=== PATIENT | female | born 1935 | race Caucasian/White ===

== ENCOUNTER 2020-08-08 20:34 | Emergency (ER) | payer OTHER, MEDICAID ==
[~2020-08-08] VITALS: Ht 154.9 cm; Wt 56.2 kg
[2020-08-08 20:57] LABS: BASOPHILS % (AUTO) 0.4 % (0.0-2.0); HEMATOCRIT 35 % (33-45); HEMOGLOBIN 11.6 g/dL (11.5-14.8); LYMPHOCYTES # (AUTO) 0.9 /CMM (0.8-4.8); LYMPHOCYTES % (AUTO) 17.4 % (20.0-44.0); MEAN CORPUSCULAR HGB CONC 34 g/dl (31.0-36.0); MEAN CORPUSCULAR VOLUME 73 fL (82-100); MONOCYTES # (AUTO) 0.5 /CMM (0.1-1.30); MONOCYTES % (AUTO) 10.4 % (2.0-12.0); NEUTROPHILS # (AUTO) 3.7 /CMM (1.8-8.9); NEUTROPHILS % (AUTO) 71.8 % (43.0-81.0); PLATELET COUNT (AUTO) 284 /CMM (150-450); RED BLOOD CELL COUNT(AUTO) 4.75 MIL/uL (4.0-5.2); WHITE BLOOD COUNT (AUTO) 5.1 K/uL (4.3-11.0)
[2020-08-08] MEDS ORDERED: IV NS 0.9% 1,000 ML BAG IV ONE (21:00)
[2020-08-08 21:12] LABS: CALCIUM, SERUM 9.4 mg/dL (8.5-10.1); CARBON DIOXIDE 23 mmol/L (21-32); CHLORIDE 92 mmol/L (98-107); CREATININE 1.8 mg/dL (0.6-1.3); GLUCOSE 167 mg/dL (74-106); POTASSIUM 4.3 mmol/L (3.5-5.1); SODIUM SERUM 126 mmol/L (136-145); UREA NITROGEN, BLOOD 19 mg/dL (7-18)
[2020-08-08 21:15] LABS: BILIRUBIN,URINE NEGATIVE (NEGATIVE); COLOR,URINE DARK YELLOW (YELLOW); LEUKOCYTE ESTERASE ,URINE MODERATE (NEGATIVE); NITRITE, URINE NEGATIVE (NEGATIVE); PH,URINE 5.5 (5.0-8.0); PROTEIN,URINE 100 mg/dl (NEGATIVE); UGLUCOSE >=1000 mg/dL (NEGATIVE)
[2020-08-08 21:18] LABS: ALANINE AMINOTRANSFERASE 16 U/L (12-78); ALBUMIN 4.4 g/dL (3.4-5.0); ALKALINE PHOSPHATASE 135 U/L (46-116); ASPARTATE AMINOTRANSFERASE 14 U/L (15-37); BILIRUBIN,DIRECT 0.3 mg/dL (0.0-0.2); BILIRUBIN,TOTAL 0.8 mg/dL (0.2-1.0); TOTAL PROTEIN, SERUM 8.2 g/dL (6.4-8.2)
--- NOTE | 2020-08-08 21:19 | NUR ---
PT [facility]AR[facility]
[2020-08-08 21:22] LABS: BACTERIA,URINE Many /HPF (None Seen); RBC,URINE 21-50 /HPF (0-2); SQUAMOUS EPITHELIAL CELL,UR Few /HPF (None Seen); WBC,URINE 51-80 /HPF (0-3)
[2020-08-08 21:31] LABS: LYMPHOCYTES % (MANUAL) 18 % (16-48); MONOCYTES % (MANUAL) 8 % (0-11.0); NEUTROPHILS % (MANUAL) 74 (42-76)
--- NOTE | 2020-08-08 21:42 | NUR ---
CHARLI KRUEGER - CANDI [phone]
--- NOTE | 2020-08-08 21:56 | NUR ---
RAMESH KRUEGER, LIVES WITH THE PT: [phone]
[2020-08-08] MEDS ORDERED: LEVOFLOXACIN 750 MG /D5W 150ML 150 ML IV ONE ×2 (22:00→22:09)
--- NOTE | 2020-08-08 23:06 | NUR ---
CALL FROM LAB. RAPID COVID NEGATIVE.
--- NOTE | 2020-08-09 00:21 | NUR ---
PATIENT RETURNED FROM CT
--- NOTE | 2020-08-09 02:17 | NUR ---
PT ACCEPTED TO [facility]. BED 8A. # FOR REPORT [phone]
--- NOTE | 2020-08-09 02:19 | NUR ---
TRANSPORT AUTH: [id number]
--- NOTE | 2020-08-09 02:21 | NUR ---
[facility] WILL ARRIVE IN ABOUT 15 TO 20 MINUTES TO TAKE PT BACK TO FACILITY.
--- NOTE | 2020-08-09 02:48 | NUR ---
REPORT GIVEN TO VINCENT AGRAWAL AT [facility]
--- NOTE | 2020-08-09 03:08 | NUR ---
[facility] ambulance at bed side to pick and shovel man the pt
[2020-08-09 03:14] VITALS: BP 148/65
== END 2020-08-09 03:20 ==
LOC: EDBD 20:34 → ER 20:34
DX: N39.0 Urinary tract infection, site not specified (principal); R53.1 Weakness; R94.31 Abnormal electrocardiogram [ECG] [EKG]; E11.9 Type 2 diabetes mellitus without complications; Z88.0 Allergy status to penicillin; R62.7 Adult failure to thrive; Z68.23 Body mass index [BMI] 23.0-23.9, adult; Z20.822 Contact with and (suspected) exposure to COVID-19
CPT/HCPCS: 36415; 70450; 71045; 80048; 80076; 81001; 83605; 84145; 84484; 85007; 85025; 85730; 87040 ×2; 87077; 87081; 87086; 87186 ×2; 87426; 93005; 96361; 96365; 99285; C9803; J1956; J7030

== ENCOUNTER 2020-09-28 03:22 | Inpatient (IN) | payer OTHER ==
[~2020-09-28] VITALS: Ht 154.9 cm; Wt 56.2 kg
[2020-09-28] VITALS (21 sets, daily range): BP systolic 88–135; BP diastolic 33–103
--- NOTE | 2020-09-28 03:25 | NUR ---
PT LISS FROM [facility] C/O HAVING ABNORMAL LABS AND POSSIBLE UTI K: 6.3, BUN: 65, CREATININE: 2.6 DRAWN ON 09/27/20. PLACED IN BED 9 ON WILL CALL CLERK AND PULSE OX. LINE ESTABLISHED RF 20G. BLOOD WORK COLLECTED, SENT TO LAB.
[2020-09-28 03:54] LABS: MONOCYTES # (AUTO) 0.8 K/uL (0.1-1.30); NEUTROPHILS # (AUTO) 8.7 K/uL (1.8-8.9); WHITE BLOOD COUNT (AUTO) 10.3 K/uL (4.3-11.0)
--- NOTE | 2020-09-28 03:57 | NUR ---
FRANSICOID SWABBED, SENT TO LAB.
[2020-09-28 03:58] LABS: BASOPHILS # (AUTO) 0.1 K/uL (0.0-0.2); BASOPHILS % (AUTO) 0.8 % (0.0-2.0); HEMATOCRIT 29 % (33-45); HEMOGLOBIN 9.2 g/dL (11.5-14.8); LYMPHOCYTES # (AUTO) 0.7 K/uL (0.8-4.8); LYMPHOCYTES % (AUTO) 6.9 % (20.0-44.0); MEAN CORPUSCULAR HGB CONC 32 g/dl (31.0-36.0); MEAN CORPUSCULAR VOLUME 75 fL (82-100); MONOCYTES % (AUTO) 7.9 % (2.0-12.0); NEUTROPHILS % (AUTO) 84.4 % (43.0-81.0); PLATELET COUNT (AUTO) 479 K/uL (150-450); RED BLOOD CELL COUNT(AUTO) 3.83 MIL/uL (4.0-5.2)
[2020-09-28] MEDS ORDERED: IV NS 0.9% 1,000 ML BAG IV ONE ×2 (04:00→04:30)
[2020-09-28 04:16] LABS: ALANINE AMINOTRANSFERASE 22 U/L (12-78); ALBUMIN 2.5 g/dL (3.4-5.0); ALKALINE PHOSPHATASE 144 U/L (46-116); ASPARTATE AMINOTRANSFERASE 16 U/L (15-37); BILIRUBIN,DIRECT 0.2 mg/dL (0.0-0.2); BILIRUBIN,TOTAL 0.4 mg/dL (0.2-1.0); CALCIUM, SERUM 9.9 mg/dL (8.5-10.1); CARBON DIOXIDE 14 mmol/L (21-32); CHLORIDE 104 mmol/L (98-107); CREATININE 3.4 mg/dL (0.6-1.3); SODIUM SERUM 136 mmol/L (136-145); TOTAL PROTEIN, SERUM 7.7 g/dL (6.4-8.2)
[2020-09-28 04:20] LABS: GLUCOSE 605 mg/dL (74-106); UREA NITROGEN, BLOOD 82 mg/dL (7-18)
--- NOTE | 2020-09-28 04:20 | NUR ---
K 6.3 GLUCOSE 605 BUN 82
[2020-09-28 04:21] LABS: POTASSIUM 6.3 mmol/L (3.5-5.1)
[2020-09-28] MEDS ORDERED: INSULIN REGULAR, HUMAN 100 UNIT/ML 10 ML VIAL ONE (04:26)
[2020-09-28] MEDS ORDERED: SODIUM BICARBONATE SYR 50 MEQ/50 ML DISP.SYRIN ONE (04:26)
[2020-09-28] MEDS ORDERED: FUROSEMIDE 20 MG/2 ML VIAL ONE (04:26)
[2020-09-28] MEDS ORDERED: CALCIUM CHLORIDE 1,000 MG/10 ML DISP.SYRIN ONE (04:26)
[2020-09-28] MEDS ORDERED: SODIUM BICARBONATE SYR 50 MEQ/50 ML DISP.SYRIN IV ONE (04:30)
[2020-09-28] MEDS ORDERED: ALBUTEROL FS 2.5 MG/3 ML VIAL.NEB NEB ONE (04:30)
[2020-09-28] MEDS ORDERED: CALCIUM CHLORIDE 1,000 MG/10 ML DISP.SYRIN IV ONE (04:30)
[2020-09-28] MEDS ORDERED: ALBUTEROL FS 2.5 MG/3 ML VIAL.NEB ONE (04:30)
[2020-09-28] MEDS ORDERED: FUROSEMIDE 40 MG/4 ML VIAL IV ONE (04:30)
[2020-09-28] MEDS ORDERED: INSULIN REGULAR, HUMAN 100 UNIT/ML 10 ML VIAL IV ONE (04:30)
[2020-09-28 04:32] LABS: COLOR,URINE YELLOW (YELLOW)
[2020-09-28 04:33] LABS: UGLUCOSE >=2000 MG/DL mg/dL (NEGATIVE)
[2020-09-28 04:34] LABS: BILIRUBIN,URINE MODERATE (NEGATIVE)
[2020-09-28 04:35] LABS: BAND % (MANUAL) 23 % (0.0-5.0); BASOPHILS % (MANUAL) 0 % (0.0-2.0); EOSINOPHILS % (MANUAL) 0 % (0-4); LYMPHOCYTES % (MANUAL) 8 % (16-48); METAMYELOCYTES % 1 % (0-0); MONOCYTES % (MANUAL) 8 % (0-11.0); NEUTROPHILS % (MANUAL) 60 (42-76)
[2020-09-28 04:35] LABS: NITRITE, URINE NEGATIVE (NEGATIVE); PROTEIN,URINE 30 mg/dl (NEGATIVE); UROBILINOGEN,URINE 0.2 EU/dL (0.2)
[2020-09-28 04:36] LABS: LEUKOCYTE ESTERASE ,URINE MODERATE (NEGATIVE)
[2020-09-28] MEDS ORDERED: INSULIN REGULAR, HUMAN 100 UNIT in IV NS 0.9% 99 ML IV PRN (05:00)
[2020-09-28] MEDS ORDERED: CIPROFLOXACIN IV RTU 400 MG in PREMIX 1 EA IV SCH (05:00)
[2020-09-28] MEDS ORDERED: CIPROFLOXACIN IV RTU 200 ML IV ONE (05:18)
[2020-09-28 05:29] LABS: BACTERIA,URINE Many /HPF (None Seen); SQUAMOUS EPITHELIAL CELL,UR Few /HPF (None Seen)
--- NOTE | 2020-09-28 05:29 | NUR ---
KRISTY FROM [facility] [phone] FAX [phone]
[2020-09-28 05:30] LABS: MUCUS,URINE Few /LPF (None Seen); WBC,URINE 21-50 /HPF (0-3)
--- NOTE | 2020-09-28 05:35 | NUR ---
FSBS:448 PER MD PT WAS STARTED ON INSULIN DRIP AT 5 UNIT/ HR. WILL CONT TO MONITOR
--- NOTE | 2020-09-28 06:03 | NUR ---
SPOKE WITH KRISTY FROM [facility] AND REC'D VERBAL AUTHORIZATION FOR PT TO BE ADMITTED TO [facility]
--- NOTE | 2020-09-28 06:10 | NUR ---
ER MD SPOKE TO DR. CORTEZ REGARDING PT ADMISSION WITH ADMISSION ORDERS RECEIVED.
[2020-09-28] MEDS ORDERED: hydrALAZINE HCL 25 MG TABLET PO PRN (06:30)
[2020-09-28] MEDS ORDERED: TRAMADOL HCL 50 MG TABLET PO PRN (06:30)
--- NOTE | 2020-09-28 06:36 | NUR ---
REPEAT BLOOD SUGAR:440 PT REMAINED ON INSULIN DRIP AT 5 UNIT/ HR. WILL CONT TO MONITOR ,
--- NOTE | 2020-09-28 07:12 | NUR ---
PT WAS TRANSFERRED TO ICU UNDER ACLS. REPORT GIVEN TO CANDICE FOR DAVY.
--- NOTE | 2020-09-28 07:30 | NUR ---
RN OPENING NOTES Patient's report received from charge nurse .Patient is on 2 lpm . HOB kept elevated. Insulin drip running at 5 units /hour. Patient will be assessed and findings will be placed in the chart. F/c noted with white and cloudiness. IV fluids hung at 125 cc/hour. Per charge nurse orders faxed to pharmacy. Awaiting verification. hob kept elevated. Call light with in reach.
[2020-09-28] MEDS: CALCIUM CARBONATE 500 MG TAB.CHEW PO SCH ×4 (08:00→17:44)
[2020-09-28 08:16] LABS: ABG BASE EXCESS -10.9 mmol/L; ABG OXYGEN SATURATION 98.4 % (92.0-98.5); ABG PCO2 20.9 mmHg (35.0-45.0); ABG PH 7.391 (7.350-7.450); COHb 0.3 % (0.5-1.5); MetHb 0.3 % (0.0-1.5); O2Hb 97.8 % (94.0-97.0); SITE, ABG Left Radial; VENT MODE, BG nasal cannula
[2020-09-28] MEDS ORDERED: SODIUM POLYSTYRENE SULFONATE 15 G/60 ML BOTTLE PO ONE (08:30)
[2020-09-28] MEDS ORDERED: ACETAMINOPHEN 325 MG TABLET PO PRN (08:30)
[2020-09-28] MEDS ORDERED: INS (REG) DRIP 100 U/100 ML NS IV PRN (08:30)
[2020-09-28] MEDS ORDERED: LATA2.5D15 EACHEYE (08:33)
[2020-09-28] MEDS ORDERED: LISI10TA29 PO (08:33)
[2020-09-28] MEDS ORDERED: TRAM50TA2 PO (08:33)
[2020-09-28] MEDS ORDERED: AMIN887L PO (08:33)
[2020-09-28] MEDS ORDERED: FOLI0.8T3 PO (08:33)
[2020-09-28] MEDS ORDERED: VITA1TAB20 PO (08:33)
[2020-09-28] MEDS ORDERED: CYAN100T44 PO (08:33)
[2020-09-28] MEDS ORDERED: HYDR-4076 PO (08:33)
[2020-09-28] MEDS ORDERED: LIDOCAINE PATCH TP (08:33)
[2020-09-28] MEDS ORDERED: PRAV10TA40 PO (08:33)
[2020-09-28] MEDS ORDERED: CHOL200076 PO (08:33)
[2020-09-28] MEDS ORDERED: CRAN3875 PO (08:33)
[2020-09-28] MEDS ORDERED: CALC-494 PO (08:33)
[2020-09-28] MEDS ORDERED: THIA100T88 PO (08:33)
[2020-09-28] MEDS ORDERED: MIRT-121 PO (08:33)
[2020-09-28] MEDS: FOLIC ACID 1 MG TABLET PO SCH ×2 (09:00→10:04)
[2020-09-28] MEDS ORDERED: INSULIN GLARGINE, 100 UNIT/ML CARTRIDGE SQ SCH (09:00)
[2020-09-28] MEDS: PROSOURCE / PROSTAT (PYXIS) 30 ML UDC PO SCH (09:00)
[2020-09-28] MEDS: THIAMINE HCL 100 MG TABLET PO SCH ×2 (09:00→10:04)
[2020-09-28] MEDS: CYANOCOBALAMIN 100 MCG TABLET PO SCH ×2 (09:00→10:04)
[2020-09-28] MEDS: CHOLECALCIFEROL (VITAMIN D 3) 400 UNIT TABLET PO SCH ×2 (09:00→10:04)
[2020-09-28] MEDS: IV 1/2NS 1000 ML 1,000 ML IV PRN ×2 (09:20→16:26)
[2020-09-28] MEDS: AMLODIPINE BESYLATE 2.5 MG TABLET PO SCH ×2 (09:30→10:09)
[2020-09-28] MEDS ORDERED: MEROPENEM 1 G in IV NS 0.9% 100 ML IV ONE (10:00)
[2020-09-28] MEDS ORDERED: CEFTRIAXONE 1 G in IV D5W 50 ML IV SCH (10:00)
--- NOTE | 2020-09-28 10:00 | NUR ---
PATIENT NOTED WITH SLIGHT COUGH WHILE SWALLOWING WATER. SWALLOW EVAL CONSULTED TO BE EVALUATED BY
[2020-09-28] MEDS: LIDOCAINE 5% (PATCH) 1 EA PATCH TP SCH (10:04)
[2020-09-28 10:19] LABS: CALCIUM, SERUM 10.1 mg/dL (8.5-10.1); CARBON DIOXIDE 14 mmol/L (21-32); CHLORIDE 110 mmol/L (98-107); CREATININE 3.1 mg/dL (0.6-1.3); POTASSIUM 5.4 mmol/L (3.5-5.1); SODIUM SERUM 141 mmol/L (136-145); UREA NITROGEN, BLOOD 78 mg/dL (7-18)
[2020-09-28 10:21] LABS: IRON, SERUM 22 ug/dl (50-175); TOTAL IRON BINDING CAPACITY 154 ug/dl (250-450)
[2020-09-28 10:33] LABS: GLUCOSE 351 mg/dL (74-106)
--- NOTE | 2020-09-28 10:41 | NUR ---
Patient seen by Dr Jesus and database report writer was giving patient her kayexalate.Per Dr to stop the kayexalate. Patient received 30 grams from 2 bottles and 7.5 grams from one bottle total of 37.5 grams of kayexalate. Patients current potassium is 5.4. Md aware.
[2020-09-28] MEDS ORDERED: MEROPENEM 1 G in IV NS 0.9% 100 ML IV SCH (13:00)
[2020-09-28] MEDS ORDERED: PIPERACILLIN /TAZOBACTAM 2.25 G in IV D5W 50 ML IV SCH (13:00)
--- NOTE | 2020-09-28 16:00 | NUR ---
PHOTOS OF PATIENT'S SKIN ASSESSMENT PLACED IN CHART AND WOUND CARE CONSULTED.
[2020-09-28] MEDS: BLOOD SUGAR DIAGNOSTIC 1 EACH STRIP IN SCH ×8 (16:22→23:10)
--- NOTE | 2020-09-28 19:20 | NUR ---
RN CLOSING NOTES Patient is alert and responsive to verbal and physical stimuli. Patient is on 2 lpm via n/c with 02 at of 100%.. HOB kept elevated. Insulin drip running at 0.5 units/hour. Patient had one bm during shift. IV n/s running at 125ml/hour to right forearm 20 gauze and insulin drip running to left forearm 20 gauze. Endorsed to next shift for DAVY. Call light with in reach. Bed is in lowest and locked position.
[2020-09-28 20:09] LABS: CALCIUM, SERUM 9.3 mg/dL (8.5-10.1); CARBON DIOXIDE 18 mmol/L (21-32); CHLORIDE 112 mmol/L (98-107); CREATININE 2.9 mg/dL (0.6-1.3); GLUCOSE 170 mg/dL (74-106); POTASSIUM 4.9 mmol/L (3.5-5.1); SODIUM SERUM 146 mmol/L (136-145); UREA NITROGEN, BLOOD 73 mg/dL (7-18)
[2020-09-28] MEDS: LATANOPROST EYE DROP 0.005% 2.5 ML BOTTLE EACHEYE SCH (21:36)
[2020-09-28] MEDS: MEROPENEM 500 MG in IV NS 0.9% 100 ML IV SCH (21:36)
[2020-09-28] MEDS: MIRTAZAPINE 15 MG TABLET PO SCH (21:41)
[2020-09-28 23:40] LABS: CALCIUM, SERUM 8.8 mg/dL (8.5-10.1); CARBON DIOXIDE 20 mmol/L (21-32); CHLORIDE 112 mmol/L (98-107); CREATININE 2.7 mg/dL (0.6-1.3); GLUCOSE 137 mg/dL (74-106); POTASSIUM 4.2 mmol/L (3.5-5.1); SODIUM SERUM 145 mmol/L (136-145); UREA NITROGEN, BLOOD 74 mg/dL (7-18)
[2020-09-29] VITALS (22 sets, daily range): BP systolic 11–146; BP diastolic 36–89
[2020-09-29] MEDS: BLOOD SUGAR DIAGNOSTIC 1 EACH STRIP IN SCH ×12 (00:02→11:15)
[2020-09-29] MEDS: IV 1/2NS 1000 ML 1,000 ML IV PRN ×3 (03:24→22:39)
[2020-09-29 04:43] LABS: CALCIUM, SERUM 8.6 mg/dL (8.5-10.1); CARBON DIOXIDE 19 mmol/L (21-32); CHLORIDE 112 mmol/L (98-107); CREATININE 2.5 mg/dL (0.6-1.3); GLUCOSE 181 mg/dL (74-106); SODIUM SERUM 144 mmol/L (136-145); UREA NITROGEN, BLOOD 68 mg/dL (7-18)
[2020-09-29 04:44] LABS: BASOPHILS % (AUTO) 0.3 % (0.0-2.0); HEMATOCRIT 25 % (33-45); HEMOGLOBIN 8.2 g/dL (11.5-14.8); LYMPHOCYTES # (AUTO) 0.7 K/uL (0.8-4.8); LYMPHOCYTES % (AUTO) 12.1 % (20.0-44.0); MEAN CORPUSCULAR HGB CONC 34 g/dl (31.0-36.0); MEAN CORPUSCULAR VOLUME 73 fL (82-100); MONOCYTES # (AUTO) 0.4 K/uL (0.1-1.30); MONOCYTES % (AUTO) 7.2 % (2.0-12.0); NEUTROPHILS # (AUTO) 4.6 K/uL (1.8-8.9); NEUTROPHILS % (AUTO) 80.4 % (43.0-81.0); PLATELET COUNT (AUTO) 307 K/uL (150-450); RED BLOOD CELL COUNT(AUTO) 3.34 MIL/uL (4.0-5.2); WHITE BLOOD COUNT (AUTO) 5.7 K/uL (4.3-11.0)
--- NOTE | 2020-09-29 07:47 | NUR ---
ASSISTANT UNIT FORESTER OPENING NOTES Patient is received in bed in a stable condition. Patient able to open eyes to verbal stimuli. On 2lpm via n/c with 02 sat of 100%. Rogers cath in place with white cloudy urine in the catheter tubing. HOB kept elevated.Insulin drip running at 1 unit/hour.iv fluids running at 125 ml/hour. Will continue to monitor. Call light with in reach. Call light with in reach.
[2020-09-29] MEDS: AMLODIPINE BESYLATE 2.5 MG TABLET PO SCH (08:29)
[2020-09-29] MEDS: THIAMINE HCL 100 MG TABLET PO SCH (08:33)
[2020-09-29] MEDS: CALCIUM CARBONATE 500 MG TAB.CHEW PO SCH ×3 (08:33→17:40)
[2020-09-29] MEDS: FOLIC ACID 1 MG TABLET PO SCH (08:33)
[2020-09-29] MEDS: CYANOCOBALAMIN 100 MCG TABLET PO SCH (08:33)
[2020-09-29] MEDS: MEROPENEM 500 MG in IV NS 0.9% 100 ML IV SCH ×2 (08:33→21:02)
[2020-09-29] MEDS: CHOLECALCIFEROL (VITAMIN D 3) 400 UNIT TABLET PO SCH (08:33)
[2020-09-29] MEDS: LIDOCAINE 5% (PATCH) 1 EA PATCH TP SCH (08:34)
--- NOTE | 2020-09-29 08:46 | NUR ---
WOUND CARE CONSULT: PT PRESENTS WITH SACRAL DEEP TISSUE INJURY IN EVOLUTION, PRESENT ON ADMISSION. RECOMMENDATIONS MADE FOR WOUND CARE AND SKIN PROTECTION. DISCUSSED WITH NURSING STAFF. IN AGREEMENT WITH PLAN OF CARE. Addendum: 09/29/20 at 0847 by ENZO BOWLES WNDNU Amended: Links added. Addendum: 09/29/20 at 0947 by ENZO BOWLES WNDNU PT TO BE PLACED ON [place] ISOFLEX LOW AIRLOSS BED. TOENAILS NOTED TO BE LONG. DPM CONSULT MADE TO DR ERNANDEZ. DISCUSSED WITH NURSING STAFF.
[2020-09-29] MEDS: PROSOURCE / PROSTAT (PYXIS) 30 ML UDC PO SCH (09:00)
[2020-09-29] MEDS ORDERED: Z GUARD REMEDY 2 OZ OINT TP PRN (09:00)
[2020-09-29] MEDS: Z GUARD REMEDY 2 OZ OINT TP SCH (09:02)
[2020-09-29 11:02] LABS: CALCIUM, SERUM 8.5 mg/dL (8.5-10.1); CARBON DIOXIDE 17 mmol/L (21-32); CHLORIDE 110 mmol/L (98-107); CREATININE 2.4 mg/dL (0.6-1.3); GLUCOSE 247 mg/dL (74-106); SODIUM SERUM 143 mmol/L (136-145); UREA NITROGEN, BLOOD 65 mg/dL (7-18)
--- NOTE | 2020-09-29 11:31 | NUR ---
Patient seen by MD CORTEZ and received orders to start lantus 20 units now then stop insulin drip in 2 hours and order for moderate sliding scale.Orders noted and carried out.
--- NOTE | 2020-09-29 11:33 | NUR ---
Called Dr Fabrice Hilario for urology consult ordered by Dr Henning. Per Dr Hilario to order CT scan of abdomen and pelvis without contrast. Orders noted and carried out.
[2020-09-29] MEDS ORDERED: INSULIN GLARGINE, 100 UNIT/ML CARTRIDGE SQ ONE ×2 (12:00→17:30)
[2020-09-29] MEDS ORDERED: DEXTROSE 50%-WATER 50 ML DISP.SYRIN IV PRN (12:00)
[2020-09-29] MEDS ORDERED: *INSULIN REGULAR(HUMULIN R)HUM 100 UNIT/ML VIAL SQ PRN (17:30)
[2020-09-29] MEDS: INSULIN REGULAR, HUMAN 100 UNIT/ML 3 ML VIAL SQ PRN (17:36)
[2020-09-29] MEDS: BLOOD SUGAR DIAGNOSTIC 1 EACH STRIP VI SCH ×2 (17:36→21:43)
--- NOTE | 2020-09-29 19:00 | NUR ---
received from ICU report at the bedside patients is alert and orienated x2 smiling and answereing simple questions sign posted to alert all that she is on a nector thick liquid and asp precautions no sob skinwarm and dry no s/s of hyper/hypo sugars
--- NOTE | 2020-09-29 19:15 | NUR ---
rceived from ICU awake alert smiling answering simple questions good eye contact rushing to OSD urine in tubing clear yellow IV placd on a pump hung sign to alert all puree / nector thickened liquid asp precautions call light by the patients hand be in low position
--- NOTE | 2020-09-29 19:27 | NUR ---
Patient was transferred to Med Surg and in stable condition. Report given to DEONNA Michaud
[2020-09-29] MEDS: MUPIROCIN OINT 2% 22 GM TUBE NS SCH (20:59)
[2020-09-29] MEDS: LATANOPROST EYE DROP 0.005% 2.5 ML BOTTLE EACHEYE SCH (21:36)
[2020-09-29] MEDS: MIRTAZAPINE 15 MG TABLET PO SCH (21:55)
[2020-09-30 06:49] LABS: BASOPHILS % (AUTO) 0.3 % (0.0-2.0); HEMATOCRIT 22 % (33-45); HEMOGLOBIN 7.5 g/dL (11.5-14.8); LYMPHOCYTES % (AUTO) 18.7 % (20.0-44.0); MEAN CORPUSCULAR HGB CONC 34 g/dl (31.0-36.0); MEAN CORPUSCULAR VOLUME 72 fL (82-100); MONOCYTES # (AUTO) 0.4 K/uL (0.1-1.30); MONOCYTES % (AUTO) 7.1 % (2.0-12.0); NEUTROPHILS # (AUTO) 3.8 K/uL (1.8-8.9); NEUTROPHILS % (AUTO) 73.9 % (43.0-81.0); PLATELET COUNT (AUTO) 257 K/uL (150-450); RED BLOOD CELL COUNT(AUTO) 3.07 MIL/uL (4.0-5.2); WHITE BLOOD COUNT (AUTO) 5.1 K/uL (4.3-11.0)
[2020-09-30] MEDS: BLOOD SUGAR DIAGNOSTIC 1 EACH STRIP VI SCH ×4 (07:02→22:39)
[2020-09-30 07:10] LABS: CALCIUM, SERUM 7.7 mg/dL (8.5-10.1); CARBON DIOXIDE 18 mmol/L (21-32); CHLORIDE 110 mmol/L (98-107); CREATININE 1.9 mg/dL (0.6-1.3); GLUCOSE 96 mg/dL (74-106); POTASSIUM 3.9 mmol/L (3.5-5.1); SODIUM SERUM 141 mmol/L (136-145); UREA NITROGEN, BLOOD 50 mg/dL (7-18)
[2020-09-30] MEDS: IV 1/2NS 1000 ML 1,000 ML IV PRN ×2 (07:10→17:37)
--- NOTE | 2020-09-30 07:32 | NUR ---
MS RN OPENING NOTES: RECEIVED PATIENT AWAKE IN BED IN NO ACUTE SIGNS OF DISTRESS. HOB ELEVATED. A/O X2. VERBALLY RESPONSIVE, CONFUSED, NO S/S OF PAIN OBSERVED AT THIS TIME. ON 02 VIA N/C AT 2LPM. TOLERATING WELL WITH NO SOB NOTED. PIV'S ON RAC G#18, R WRIST G#20 AND LFA G#20 ALL INTACT, IVF OF 1/2 NS @ 125 ML/HR INFUSING TO LFA. THOMAS IN PLACE DRAINING CLEAR YELLOW URINE VIA GRAVITY. SAFETY MEASURES IN PLACE: BED IN LOWEST LOCKED POSITION WITH SR UP X2. CALL LIGHT WITHIN REACH. WILL CONTINUE TO MONITOR PT CLOSELY.
[2020-09-30 08:00] VITALS: BP 141/57
[2020-09-30] MEDS: THIAMINE HCL 100 MG TABLET PO SCH (08:24)
[2020-09-30] MEDS: FOLIC ACID 1 MG TABLET PO SCH (08:24)
[2020-09-30] MEDS: LIDOCAINE 5% (PATCH) 1 EA PATCH TP SCH (08:25)
[2020-09-30] MEDS: PROSOURCE / PROSTAT (PYXIS) 30 ML UDC PO SCH (08:25)
[2020-09-30] MEDS: CALCIUM CARBONATE 500 MG TAB.CHEW PO SCH ×3 (08:25→17:36)
[2020-09-30] MEDS: CHOLECALCIFEROL (VITAMIN D 3) 400 UNIT TABLET PO SCH (08:34)
[2020-09-30] MEDS ORDERED: INSULIN GLARGINE, 100 UNIT/ML CARTRIDGE SQ SCH ×2 (09:00→22:00)
[2020-09-30] MEDS: CYANOCOBALAMIN 100 MCG TABLET PO SCH (09:00)
[2020-09-30] MEDS: MUPIROCIN OINT 2% 22 GM TUBE NS SCH ×2 (09:09→21:27)
[2020-09-30] MEDS: Z GUARD REMEDY 2 OZ OINT TP SCH (09:10)
[2020-09-30] MEDS: MEROPENEM 500 MG in IV NS 0.9% 100 ML IV SCH ×2 (09:12→21:27)
[2020-09-30] MEDS: INSULIN REGULAR, HUMAN 100 UNIT/ML 3 ML VIAL SQ PRN ×3 (11:54→22:43)
[2020-09-30 16:00] VITALS: BP 146/71
--- NOTE | 2020-09-30 18:40 | NUR ---
MS RN CLOSING NOTES: PATIENT IN BED AWAKE AT THIS TIME. HOB ELEVATED. A/O X2-3. VERBALLY RESPONSIVE, CONFUSED AT TIMES. ON 02 VIA N/C AT 2LPM, TOLERATING WELL WITH NO SOB NOTED. PIV'S ON RAC G#18, R WRIST G#20 AND LFA G#20 ALL INTACT, IVF OF 1/2 NS @ 125 ML/HR INFUSING TO LFA. THOMAS IN PLACE DRAINING CLEAR YELLOW URINE VIA GRAVITY., THOMAS CARE DONE. PT TURNED AND REPOSITIONED Q2HRS AND PRN. ALL NEEDS AND CARE ATTENDED WELL. SAFETY MEASURES KEPT IN PLACE: BED IN LOWEST LOCKED POSITION WITH SR UP X2. CALL LIGHT WITHIN REACH. WILL ENDORSE DAVY TO SEPTIC CLEANER NURSE.
--- NOTE | 2020-09-30 19:10 | NUR ---
RN NOTES: RECEIVED AWAKE ON BED, A/O1-2 WITH PERIODS OF FORGETFULNESS AND CONFUSION, NEEDS MAXIMUM ASSIST, INCONTINENT BOTH BOWEL AND BLADDER, FALL,SAFETY AND ASPIRATION PRECAUTION OBSERVED, ON O2 AT 2L/MIN VIA NC SPO2-100%, NON LABORED BREATHING,TALKING ALONE TO HERSELF IN BETWEEN.
[2020-09-30 20:00] VITALS: BP 144/65
[2020-09-30] MEDS: LATANOPROST EYE DROP 0.005% 2.5 ML BOTTLE EACHEYE SCH (21:28)
--- NOTE | 2020-09-30 22:00 | NUR ---
RN NOTES: BLOOD SUGAR [id number], INSULIN GIVEN PER SCALE, DUE MEDS GIVEN, COOPERATIVE, WILL CONTINUE TO MONITOR FOR SIGN OF HYPER AND HYPOGLYCEMIA.
[2020-09-30] MEDS: MIRTAZAPINE 15 MG TABLET PO SCH (22:39)
--- NOTE | 2020-10-01 | NUR ---
RN NOTES: AWAKE MOST OF THE TIME, NO PAIN OR DISCOMFORT, CHECK AT FREQUENT INTERVALS, NEEDS ATTENDED.
[2020-10-01] MEDS: IV 1/2NS 1000 ML 1,000 ML IV PRN (02:09)
--- NOTE | 2020-10-01 02:18 | NUR ---
RN NOTES: IVF COMPLETED, RESUMED WITH NEW BAG 1/2 NS AT 100 ML/HR, KEPT CALL LIGHT WITHIN EASY REACH.FALL AND SAFETY PRECAUTION OBSERVED.
--- NOTE | 2020-10-01 04:18 | NUR ---
RN NOTES: MORNING CARE DONE, CLEAN AND CHANGE, COOPERATIVE, NO COMPLAINTS OF PAIN OR DISCOMFORT.
[2020-10-01 05:50] LABS: BASOPHILS % (AUTO) 0.2 % (0.0-2.0); HEMATOCRIT 25 % (33-45); HEMOGLOBIN 8.3 g/dL (11.5-14.8); LYMPHOCYTES % (AUTO) 17.5 % (20.0-44.0); MEAN CORPUSCULAR HGB CONC 33 g/dl (31.0-36.0); MEAN CORPUSCULAR VOLUME 73 fL (82-100); MONOCYTES # (AUTO) 0.4 K/uL (0.1-1.30); MONOCYTES % (AUTO) 7.2 % (2.0-12.0); NEUTROPHILS # (AUTO) 4.3 K/uL (1.8-8.9); NEUTROPHILS % (AUTO) 75.1 % (43.0-81.0); PLATELET COUNT (AUTO) 237 K/uL (150-450); RED BLOOD CELL COUNT(AUTO) 3.43 MIL/uL (4.0-5.2); WHITE BLOOD COUNT (AUTO) 5.7 K/uL (4.3-11.0)
[2020-10-01 06:10] LABS: CALCIUM, SERUM 7.8 mg/dL (8.5-10.1); CARBON DIOXIDE 19 mmol/L (21-32); CHLORIDE 106 mmol/L (98-107); CREATININE 1.5 mg/dL (0.6-1.3); GLUCOSE 102 mg/dL (74-106); POTASSIUM 3.7 mmol/L (3.5-5.1); SODIUM SERUM 137 mmol/L (136-145); UREA NITROGEN, BLOOD 34 mg/dL (7-18)
--- NOTE | 2020-10-01 06:25 | NUR ---
RN NOTES: WHILE CHANGING HER BRIEF, HEARING CARE PRACTITIONER REPOSTED NOTED LEAKING ON THE IV SITE, TRIED TO USE OTHER IV SITE, ALL ARE OUT. -OLD IV CANNULA REMOVED IN RAC,RFA AND LH. -EXPLAINED TO PATIENT WE NEED TO RECITE AND PUT A NEW IV CANNULA, SHE AGREED, INSERTED ON LFA G#22, 1 ATTEMPT WITH GOOD BACK FLOW.IVF CONTINUE.
--- NOTE | 2020-10-01 07:17 | NUR ---
MS RN OPENING NOTES: RECEIVED PATIENT RESTING IN BED. PATIENT A/O X 2, WITH EPISODES OF CONFUSION. PATIENT IS BREATHING EVENLY AND NONLABORED ON O2 2 LPM VIA NASAL CANNULA AND IS IN NO ACUTE SIGNS OF DISTRESS. HOB ELEVATED. . VERBALLY RESPONSIVE, CONFUSED, NO S/S OF PAIN OBSERVED AT THIS TIME. PT HAS IV ACCESS ON RAC G#18, R WRIST G#20 AND LFA G#20 ALL INTACT, IVF OF 1/2 NS @ 100 ML/HR INFUSING TO LFA. THOMAS IN PLACE DRAINING CLEAR YELLOW URINE VIA GRAVITY. SAFETY MEASURES IN PLACE: BED IN LOWEST LOCKED POSITION WITH SR UP X2. CALL LIGHT WITHIN REACH. WILL CONTINUE TO MONITOR
--- NOTE | 2020-10-01 07:30 | NUR ---
RN NOTES: BLOOD SUGAR CHECKED-75, ENCOURAGE TO WAKE UP GIVEN THICKENED LIQUID OF ORANGE JUICE, KEPT IN UPRIGHT POSITION, SWALLOWED WELL, ASPIRATION PRECAUTION OBSERVED, IVF ONGOING, THOMAS CATH OUTPUT-1,600 NO BM, FOR LABS THIS MORNING, ENDORED FOR CONTINUITY OF CARE, NO PAIN, NO DISCOMFORT, NO SOB.
[2020-10-01] MEDS: BLOOD SUGAR DIAGNOSTIC 1 EACH STRIP VI SCH ×2 (07:39→11:43)
[2020-10-01 08:00] VITALS: BP 154/64
[2020-10-01] MEDS: LIDOCAINE 5% (PATCH) 1 EA PATCH TP SCH (08:33)
[2020-10-01] MEDS: FOLIC ACID 1 MG TABLET PO SCH (08:33)
[2020-10-01] MEDS: THIAMINE HCL 100 MG TABLET PO SCH (08:33)
[2020-10-01] MEDS: CALCIUM CARBONATE 500 MG TAB.CHEW PO SCH ×2 (08:33→12:04)
[2020-10-01] MEDS: CHOLECALCIFEROL (VITAMIN D 3) 400 UNIT TABLET PO SCH (08:33)
[2020-10-01] MEDS: Z GUARD REMEDY 2 OZ OINT TP SCH (08:34)
[2020-10-01] MEDS: MEROPENEM 500 MG in IV NS 0.9% 100 ML IV SCH (08:37)
[2020-10-01] MEDS: CYANOCOBALAMIN 100 MCG TABLET PO SCH (08:38)
[2020-10-01] MEDS: MUPIROCIN OINT 2% 22 GM TUBE NS SCH (08:38)
[2020-10-01] MEDS: PROSOURCE / PROSTAT (PYXIS) 30 ML UDC PO SCH (08:39)
[2020-10-01] MEDS ORDERED: AMLODIPINE BESYLATE 2.5 MG TABLET PO SCH (09:00)
[2020-10-01] MEDS ORDERED: MUPI22OI7 NS (09:04)
[2020-10-01] MEDS ORDERED: Insulin Glargine,Hum SQ (09:04)
[2020-10-01] MEDS ORDERED: *INS REG SQ (09:04)
[2020-10-01] MEDS ORDERED: MERO500V23 IV ×2 (09:04→09:19)
[2020-10-01] MEDS ORDERED: INSU100V28 SQ (09:04)
[2020-10-01] MEDS ORDERED: AMLO2.5T2 PO (09:06)
[2020-10-01] MEDS: INSULIN REGULAR, HUMAN 100 UNIT/ML 3 ML VIAL SQ PRN (11:42)
--- NOTE | 2020-10-01 13:37 | NUR ---
ASSET PROTECTION ASSISTANT NOTE RECEIVED ORDER FOR DISCHARGE, PATIENT IS A/O X2. PATIENT IS BREATHING EVENLY AND NONLABORED, NO SIGNS OF DISTRESS NOTED. PATIENT DOES NOT COMPLAIN OF PAIN AT THIS TIME. PATIENT WAS GIVEN DISCHARGE INSTRUCTIONS BOTH VERBALLY AND IN WRITTEN FORM, NEEDS CONTINUED EDUCATION, REPORT GIVEN TO DEONNA BRICEÑO @ [facility]. PATIENT HAS THOMAS CATHETER INTACT AND IV ACCESS TO LFA # 22 PATENT AND INTACT TO CONTINUE IV ATB PER ORDER. PATIENT LEFT IN STABLE CONDITION VIA AMBULANCE TWO AIR CARRIER OPERATIONS INSPECTOR PRESENT.
[2020-10-01 15:58] VITALS: BP 148/53
[2020-10-01] MEDS ORDERED: INSULIN GLARGINE, 100 UNIT/ML CARTRIDGE SQ SCH (22:00)
== END 2020-10-01 13:40 | DRG 637 ==
LOC: ER 03:24 → TRANSITION 06:34 → ICU 06:51 → TELE 09-29 19:10 → MED 09-29 19:18
PROVIDERS: ADMIT Internal Medicine; ATTEND Internal Medicine
DX: E11.10 Type 2 diabetes mellitus with ketoacidosis without coma (principal); N17.0 Acute kidney failure with tubular necrosis; E87.2 Acidosis; N13.6 Pyonephrosis; I12.9 Hypertensive chronic kidney disease with stage 1 through stage 4 chronic kidney disease, or unspecified chronic kidney disease; E11.22 Type 2 diabetes mellitus with diabetic chronic kidney disease; N18.9 Chronic kidney disease, unspecified; F03.90 Unspecified dementia, unspecified severity, without behavioral disturbance, psychotic disturbance, mood disturbance, and anxiety; Z88.0 Allergy status to penicillin; E86.0 Dehydration; M20.41 Other hammer toe(s) (acquired), right foot; M20.42 Other hammer toe(s) (acquired), left foot; K21.9 Gastro-esophageal reflux disease without esophagitis; D50.9 Iron deficiency anemia, unspecified; E87.5 Hyperkalemia; Q62.7 Congenital vesico-uretero-renal reflux; Z79.4 Long term (current) use of insulin; N30.90 Cystitis, unspecified without hematuria; B96.89 Other specified bacterial agents as the cause of diseases classified elsewhere; Z20.822 Contact with and (suspected) exposure to COVID-19
CPT/HCPCS: 36415; 36600; 71045-TC; 76770-TC; 80048-TC; 80076-TC; 81001; 82010-TC; 82962-TC; 83540-TC; 83605-TC; 84484-TC; 85025-TC; 85730-TC; 87040-TC; 87081-TC; 87086-TC; 92526; 92611-TC; 97116-TC; 97530-TC; A4216; C9803; G0378; J0696; J0744; J1815; J1940; J2185; J3490; J7030; J7050; J7060